=== PATIENT | male | born 1990 | race Hispanic/Latino ===

== ENCOUNTER 2019-02-17 14:19 | Emergency (ER) | payer SELFPAY ==
--- NOTE | 2019-02-17 16:35 | RAD REPORT ---
EXAM DESCRIPTION: CT - Head Brain Wo Cont - 02/17/2019 4:30 pm CLINICAL HISTORY: Headache COMPARISON: None. TECHNIQUE: Axial 5 mm thick images of the head were obtained without IV contrast. All CT scans are performed using dose optimization technique as appropriate and may include automated exposure control or mA/KV adjustment according to patient size. FINDINGS: No intracranial hemorrhage, mass, edema or shift of mid-line structures. No acute infarcti on changes seen. No abnormal extra-axial fluid collections. Ventricles are normal. Mastoid air cells and visualized portions of the paranasal sinuses are clear. No acute bony findings. IMPRESSION: Negative non-contrast CT head examination.
--- NOTE | 2019-02-17 18:00 | ER ---
Nurse's Notes [facility] Name: Ilan Fox Age: 28 yrs Sex: Male : 1990 Arrival Date: 02/17/2019 Time: 14:23 Bed External Waiting Private MD: Diagnosis: Acute upper respiratory infection, unspecified Presentation: 02/17 14:31 Presenting complaint: Fever and headache x 4 days. TMAX 102. Denies cough/N/V/D. hb Transition of care: patient was not received from another setting of care. Mechanism of Injury:. Risk Assessment: Do you want to hurt yourself or someone else? Patient reports no desire to harm self or others. 14:31 Method Of Arrival: Ambulatory hb 14:31 Acuity: DC 3 hb 14:33 Onset of symptoms was February 13, 2019. Care prior to arrival: None. hb 14:44 Initial Sepsis Screen: Does the patient meet any 2 criteria? No. Patient's initial wh sepsis screen is negative. Does the patient have a suspected source of infection? No. Patient's initial sepsis screen is negative. Triage Assessment: 15:00 General: Appears in no apparent distress. Behavior is calm, cooperative, appropriate wh for age. Historical: - Allergies: 14:33 No Known Allergies; hb - Home Meds: 14:33 None [Active]; hb - PMHx: 14:33 None; hb - PSHx: 14:33 None; hb - Immunization history:: Adult Immunizations up to date. - Social history:: Smoking status: Patient/guardian denies using tobacco. - Ebola Screening: : No symptoms or risks identified at this time. Screenin:44 Abuse screen: Denies threats or abuse. Denies injuries from another. Nutritional wh screening: No deficits noted. Tuberculosis screening: No symptoms or risk factors identified. Fall Risk None identified. Assessment: 15:00 General: Appears in no apparent distress. comfortable, Behavior is calm, cooperative, wh appropriate for age. Pain: Complains of pain in behind eyes Pain does not radiate. Pain currently is 3 out of 10 on a pain scale. Neuro: Level of Consciousness is awake, alert, obeys commands, Oriented to person, place, time, situation, Appropriate for age. Cardiovascular: Heart tones S1 S2. Respiratory: Airway is patent Respiratory effort is even, unlabored, Respiratory pattern is regular, symmetrical. GI: Abdomen is flat, non-distended. : No signs and/or symptoms were reported regarding the genitourinary system. EENT: Reports pain in right eye and left eye. Derm: Skin is intact, is healthy with good turgor, Skin is pink, warm \T\ dry. normal. Musculoskeletal: Circulation, motion, and sensation intact. 16:30 Reassessment: Patient appears in no apparent distress at this time. No changes from previously documented assessment. Patient and/or family updated on plan of care and expected duration. Pain level reassessed. Patient is alert, oriented x 3, equal unlabored respirations, skin warm/dry/pink. 18:00 Reassessment: Patient appears in no apparent distress at this time. No changes from previously documented assessment. Patient and/or family updated on plan of care and expected duration. Pain level reassessed. Patient is alert, oriented x 3, equal unlabored respirations, skin warm/dry/pink. Patient denies pain at this time. Vital Signs: 14:33 BP 138 / 82; Pulse 74; Resp 16; Temp 98.3; Pulse Ox 100% on R/A; Weight 92.99 kg; hb Height 5 ft. 11 in. (180.34 cm); Pain 8/10; 16:30 BP 136 / 86; Pulse 67; Resp 18; Pulse Ox 100% on R/A; wh 18:00 BP 112 / 95; Pulse 60; Resp 18; Temp 98.6; Pulse Ox 99% ; wh 14:33 Body Mass Index 28.59 (92.99 kg, 180.34 cm) hb ED Course: 14:23 Patient arrived in ED. mr 14:33 Triage completed. hb 14:33 Arm band placed on. hb 14:35 Liz Jordan FNP-C is PHCP. kb 14:35 Kai Baltazar MD is Attending Physician. kb 14:44 Maria Teresa Barba is Primary Nurse. wh 14:45 Patient has correct armband on for positive identification. Bed in low position. Call light in reach. Side rails up X 1. Pulse ox on. NIBP on. 16:35 Head Brain Wo Cont In Process Unspecified. EDMS 18:00 No provider procedures requiring assistance completed. Patient did not have IV access during this emergency room visit. Administered Medications: No medications were administered Outcome: 17:59 Discharge ordered by . kb 18:13 Patient left the ED. 18:15 Discharged to home ambulatory, with family. 18:15 Condition: stable 18:15 Discharge instructions given to patient, family, Instructed on discharge instructions, follow up and referral plans. POC URTI Demonstrated understanding of instructions, follow-up care, POC Signatures: Dispatcher [employer] EDMS Liz Jordan, OPTICAL ENGINEER-C OPTICAL ENGINEER-Rudi Lopeza Shena fraser Cristine Ascencio, RN RN Dariela Hinojosa, MIKKI RN Maria Teresa Barba Corrections: (The following items were deleted from the chart) 19:17 18:00 BP 128 / 95; Pulse 77bpm; Resp 18bpm; Pulse Ox 100%; Temp 98.6F; [facility] 19:17 16:30 BP 108 / 54; Pulse 66bpm; Resp 18bpm; Pulse Ox 100% RA; [facility]
--- NOTE | 2019-02-17 18:01 | EDPHYS ---
Physician Documentation [facility] Name: Ilan Fox Age: 28 yrs Sex: Male : 1990 Arrival Date: 02/17/2019 Time: 14:23 Bed External Waiting Private MD: ED Physician Kai Baltazar HPI: 02/17 16:37 This 28 yrs old Male presents to ER via Ambulatory with complaints of Fever, kb Eye Pain. Historical: - Allergies: 14:33 No Known Allergies; hb - Home Meds: 14:33 None [Active]; hb - PMHx: 14:33 None; hb - PSHx: 14:33 None; hb - Immunization history:: Adult Immunizations up to date. - Social history:: Smoking status: Patient/guardian denies using tobacco. - Ebola Screening: : No symptoms or risks identified at this time. ROS: 15:56 Eyes: Negative for injury, pain, redness, and discharge, ENT: Negative for injury, kb pain, and discharge, Neck: Negative for injury, pain, and swelling, Cardiovascular: Negative for chest pain, palpitations, and edema, Respiratory: Negative for shortness of breath, cough, wheezing, and pleuritic chest pain, Abdomen/GI: Negative for abdominal pain, nausea, vomiting, diarrhea, and constipation, Back: Negative for injury and pain, : Negative for injury, bleeding, discharge, and swelling, MS/Extremity: Negative for injury and deformity, Skin: Negative for injury, rash, and discoloration. 15:56 Constitutional: Positive for fever, Negative for body aches, chills, fatigue, malaise, poor PO intake, weight loss. 15:56 Neuro: Positive for headache. Exam: 16:37 Constitutional: This is a well developed, well nourished patient who is awake, alert, kb and in no acute distress. Eyes: Pupils equal round and reactive to light, extra-ocular motions intact. Lids and lashes normal. Conjunctiva and sclera are non-icteric and not injected. Cornea within normal limits. Periorbital areas with no swelling, redness, or edema. ENT: Nares patent. No nasal discharge, no septal abnormalities noted. Tympanic membranes are normal and external auditory canals are clear. Oropharynx with no redness, swelling, or masses, exudates, or evidence of obstruction, uvula midline. Mucous membranes moist. Neck: Trachea midline, no thyromegaly or masses palpated, and no cervical lymphadenopathy. Supple, full range of motion without nuchal rigidity, or vertebral point tenderness. No Meningismus. Chest/axilla: Normal chest wall appearance and motion. Nontender with no deformity. No lesions are appreciated. Cardiovascular: Regular rate and rhythm with a normal S1 and S2. No gallops, murmurs, or rubs. Normal PMI, no JVD. No pulse deficits. Respiratory: Lungs have equal breath sounds bilaterally, clear to auscultation and percussion. No rales, rhonchi or wheezes noted. No increased work of breathing, no retractions or nasal flaring. Abdomen/GI: Soft, non-tender, with normal bowel sounds. No distension or tympany. No guarding or rebound. No evidence of tenderness throughout. Skin: Warm, dry with normal turgor. Normal color with no rashes, no lesions, and no evidence of cellulitis. MS/ Extremity: Pulses equal, no cyanosis. Neurovascular intact. Full, normal range of motion. Neuro: Awake and alert, GCS 15, oriented to person, place, time, and situation. Cranial nerves II-XII grossly intact. Motor strength 5/5 in all extremities. Sensory grossly intact. Cerebellar exam normal. Normal gait. 16:37 Head/face: Noted is no obvious of injury or deformity except contusion, that is superficial, of the left lower eyelid. Vital Signs: 14:33 BP 138 / 82; Pulse 74; Resp 16; Temp 98.3; Pulse Ox 100% on R/A; Weight 92.99 kg; hb Height 5 ft. 11 in. (180.34 cm); Pain 8/10; 16:30 BP 136 / 86; Pulse 67; Resp 18; Pulse Ox 100% on R/A; wh 18:00 BP 112 / 95; Pulse 60; Resp 18; Temp 98.6; Pulse Ox 99% ; wh 14:33 Body Mass Index 28.59 (92.99 kg, 180.34 cm) hb MDM: 14:36 Patient medically screened. kb 16:37 Data reviewed: vital signs, nurses notes. Data interpreted: Pulse oximetry: on room air kb is 100 %. Interpretation: normal. 17:59 Counseling: I had a detailed discussion with the patient and/or guardian regarding: the kb historical points, exam findings, and any diagnostic results supporting the discharge/admit diagnosis, lab results, radiology results, the need for outpatient follow up, a family practitioner, to return to the emergency department if symptoms worsen or persist or if there are any questions or concerns that arise at home. 02/17 14:35 Order name: Strep; Complete Time: 15:42 kb 02/17 14:35 Order name: Flu; Complete Time: 15:42 kb 02/17 15:32 Order name: Throat Culture EDDC 02/17 16:34 Order name: Head Brain Wo Cont; Complete Time: 17:59 EDMS Administered Medications: No medications were administered Disposition: 02/18 09:26 Co-signature as Attending Physician, Kai Baltazar MD I agree with the assessment and kdr plan of care. Disposition: 02/17/19 17:59 Discharged to Home. Impression: Acute upper respiratory infection, unspecified. - Condition is Stable. - Medication Reconciliation Form, Thank You Letter, Antibiotic Education, Prescription Opioid Use form. - Follow up: Emergency Department; When: As needed; Reason: Worsening of condition. Follow up: Private Physician; When: 2 - 3 days; Reason: Recheck today's complaints, Continuance of care, Re-evaluation by your physician. Signatures: Dispatcher [employer] [facility] Liz Jordan, INTERNET RETAILER-C INTERNET RETAILER-CkKai Orr MD MD [facility] Cristine Ascencio RN RN Dariela Hinojosa RN RN Corrections: (The following items were deleted from the chart) 02/17 16:34 16:34 CT-HEAD/BRAIN W/O CONTRAST ordered. [facility] 18:13 17:59 02/17/2019 17:59 Discharged to Home. Impression: Acute upper respiratory iw infection, unspecified. Condition is Stable. Forms are Medication Reconciliation Form, Thank You Letter, Antibiotic Education, Prescription Opioid Use. Follow up: Emergency Department; When: As needed; Reason: Worsening of condition. Follow up: Private Physician; When: 2 - 3 days; Reason: Recheck today's complaints, Continuance of care, Re-evaluation by your physician. kb
== END 2019-02-17 18:13 | disposition home or self-care (01) ==
LOC: ER 14:19
DX: J06.9 Acute upper respiratory infection, unspecified (principal)
CPT/HCPCS: 70450; 87070; 87081; 87804; 99283